=== PATIENT | female | born 1965 | race African-American/Black ===

== ENCOUNTER 2020-04-21 17:36 | Inpatient (IN) | payer MEDICARE, MEDICAID ==
[~2020-04-21] VITALS: Ht 172.7 cm; Wt 98.0 kg
[~2020-04-21 17:36] MED LIST: BENA40TA9 MT; FERR325T6 MT; GLYB5TAB7 MT; HALO5TAB PO; HYDR-4248 TP; INSU100I28 SQ
[2020-04-21] MEDS ORDERED: CEFTRIAXONE 1 G PREMIX 50 ML IV ONE (18:15)
[2020-04-21] MEDS ORDERED: SODIUM CHLORIDE 0.9% 1000ML BAG (SEPSIS BOLUS) IV ONE (18:15)
[2020-04-21 19:53] LABS: BASOPHILS % 0.2 % (0.0-2.0); EOSINOPHILS % 0.2 % (0.0-5.0); HEMATOCRIT. 32.7 % (36.0-48.0); HEMOGLOBIN. 10.4 g/dL (12.0-16.0); MEAN CORPUSCULAR HEMOGLOBIN 27.8 pg (28.0-32.0); MEAN CORPUSCULAR VOLUME 87.6 fL (81.0-99.0); MEAN PLATELET VOLUME 9.8 fl (7.4-10.4); MONOCYTES % 4.5 % (2.0-8.0); NEUTROPHILS % 79.1 % (40.0-76.0); PLATELET 156 x1000/uL (130-400); RED BLOOD CELL COUNT 3.73 mill/uL (4.2-5.4); RED CELL DISTRIBUTION WIDTH 22.2 % (11.6-14.6)
[2020-04-21 19:56] LABS: CHLORIDE 98 mEq/L (98-107)
[2020-04-21 19:58] LABS: INR 1.4; PROTHROMBIN TIME 14.3 sec (9.6-11.0)
[2020-04-21 20:31] LABS: PLATELET ESTIMATE NORMAL
[2020-04-22] VITALS (9 sets, daily range): BP systolic 91–173; BP diastolic 56–68
[2020-04-22] MEDS ORDERED: ONDANSETRON HCL 4MG/2ML INJ IV PRN (00:45)
[2020-04-22] MEDS ORDERED: DEXTROSE 50% WATER 50ML SYRINGE IV PRN (00:45)
[2020-04-22] MEDS ORDERED: ZOLPIDEM TARTRATE 5MG TABLET PO PRN (00:45)
[2020-04-22] MEDS ORDERED: ACETAMINOPHEN 325MG TABLET PO PRN (00:45)
[2020-04-22] MEDS ORDERED: MAGNESIUM/ALUMINUM HYDROXIDE/SIMETHICONE 30ML UDC PO PRN (00:45)
[2020-04-22] MEDS ORDERED: CLONIDINE 0.1MG TABLET PO PRN (00:45)
[2020-04-22] MEDS ORDERED: DIPHENHYDRAMINE 50MG/ML VIAL IV PRN (00:45)
[2020-04-22] MEDS: SODIUM CHLORIDE 0.9% 1,000 ML IV SCH ×3 (03:52→22:31)
[2020-04-22 06:31] LABS: HEMATOCRIT. 27.5 % (36.0-48.0); HEMOGLOBIN. 8.7 g/dL (12.0-16.0); MEAN CORPUSCULAR HEMOGLOBIN 27.4 pg (28.0-32.0); MEAN CORPUSCULAR VOLUME 86.1 fL (81.0-99.0); MEAN PLATELET VOLUME 9.9 fl (7.4-10.4); PLATELET 135 x1000/uL (130-400); RED CELL DISTRIBUTION WIDTH 21.1 % (11.6-14.6)
[2020-04-22 06:45] LABS: CHLORIDE 104 mEq/L (98-107)
[2020-04-22] MEDS: BLOOD SUGAR DIAGNOSTIC STRIP TEST SCH ×4 (07:30→21:00)
[2020-04-22] MEDS: INSULIN LISPRO 100 UNITS/ML SUBCUT SCH ×4 (08:00→21:00)
[2020-04-22] MEDS: FAMOTIDINE 20MG TABLET PO SCH ×2 (09:23→22:40)
[2020-04-22] MEDS: ACETAMINOPHEN 325MG TABLET PO PRN (16:14)
[2020-04-22] MEDS: CEFTRIAXONE 1,000 MG in DEXTROSE 5% WATER 50 ML IV SCH (22:40)
[2020-04-22 22:48] LABS: PLATELET ESTIMATE NORMAL
[2020-04-23] VITALS (12 sets, daily range): BP systolic 82–115; BP diastolic 45–67
[2020-04-23] MEDS: METRONIDAZOLE 500 MG PREMIX 100 ML IV SCH ×3 (02:40→17:17)
[2020-04-23 05:26] LABS: CHLORIDE 104 mEq/L (98-107)
[2020-04-23 05:31] LABS: BASOPHILS % 0.4 % (0.0-2.0); EOSINOPHILS % 0.4 % (0.0-5.0); HEMATOCRIT. 29.1 % (36.0-48.0); HEMOGLOBIN. 9.3 g/dL (12.0-16.0); LYMPHOCYTES % 14.5 % (20.0-50.0); MEAN CORPUSCULAR HEMOGLOBIN 27.3 pg (28.0-32.0); MEAN CORPUSCULAR VOLUME 85.1 fL (81.0-99.0); MEAN PLATELET VOLUME 10.1 fl (7.4-10.4); MONOCYTES % 6.2 % (2.0-8.0); NEUTROPHILS % 78.5 % (40.0-76.0); PLATELET 136 x1000/uL (130-400); RED BLOOD CELL COUNT 3.41 mill/uL (4.2-5.4); RED CELL DISTRIBUTION WIDTH 20.8 % (11.6-14.6)
[2020-04-23 05:33] LABS: PHOSPHORUS 4.3 mg/dL (2.5-4.9)
[2020-04-23] MEDS: BLOOD SUGAR DIAGNOSTIC STRIP TEST SCH ×4 (07:30→21:00)
[2020-04-23] MEDS: INSULIN LISPRO 100 UNITS/ML SUBCUT SCH ×4 (08:00→21:11)
[2020-04-23] MEDS: SODIUM CHLORIDE 0.9% 1,000 ML IV SCH ×2 (08:45→17:15)
[2020-04-23] MEDS: FAMOTIDINE 20MG TABLET PO SCH ×2 (08:48→20:59)
[2020-04-23] MEDS: MIDODRINE HCL 5MG TABLET PO SCH ×2 (11:42→16:36)
[2020-04-23 19:40] LABS: CREATINE KINASE 362 IU/L (26-192)
[2020-04-23] MEDS: CEFTRIAXONE 1,000 MG in DEXTROSE 5% WATER 50 ML IV SCH (20:59)
[2020-04-24] VITALS (12 sets, daily range): BP systolic 90–153; BP diastolic 43–88
[2020-04-24] MEDS: METRONIDAZOLE 500 MG PREMIX 100 ML IV SCH ×3 (03:03→17:04)
[2020-04-24] MEDS: SODIUM CHLORIDE 0.9% 1,000 ML IV SCH ×2 (03:54→13:03)
[2020-04-24] MEDS: BLOOD SUGAR DIAGNOSTIC STRIP TEST SCH ×4 (08:08→21:16)
[2020-04-24] MEDS: FAMOTIDINE 20MG TABLET PO SCH ×2 (08:24→21:16)
[2020-04-24] MEDS: MIDODRINE HCL 5MG TABLET PO SCH ×3 (08:25→16:56)
[2020-04-24] MEDS: INSULIN LISPRO 100 UNITS/ML SUBCUT SCH ×4 (08:36→21:00)
[2020-04-24] MEDS: ACETAMINOPHEN 325MG TABLET PO PRN (12:59)
[2020-04-24] MEDS: MEGESTROL ACETATE 400 MG/10 ML UDC PO SCH (16:55)
[2020-04-24] MEDS: ENOXAPARIN 40MG/0.4ML SYR SUBCUT SCH (16:55)
[2020-04-24] MEDS: CEFTRIAXONE 1,000 MG in DEXTROSE 5% WATER 50 ML IV SCH (21:16)
[2020-04-25] VITALS (12 sets, daily range): BP systolic 93–123; BP diastolic 38–68
[2020-04-25] MEDS: SODIUM CHLORIDE 0.9% 1,000 ML IV SCH ×2 (01:30→09:20)
[2020-04-25] MEDS: METRONIDAZOLE 500 MG PREMIX 100 ML IV SCH ×3 (01:30→19:09)
[2020-04-25] MEDS: BLOOD SUGAR DIAGNOSTIC STRIP TEST SCH ×4 (07:30→20:27)
[2020-04-25] MEDS: INSULIN LISPRO 100 UNITS/ML SUBCUT SCH ×4 (08:00→20:55)
[2020-04-25] MEDS: MEGESTROL ACETATE 400 MG/10 ML UDC PO SCH ×2 (09:10→19:10)
[2020-04-25] MEDS: FAMOTIDINE 20MG TABLET PO SCH ×2 (09:10→20:53)
[2020-04-25] MEDS: ACETAMINOPHEN 325MG TABLET PO PRN (09:11)
[2020-04-25] MEDS: MIDODRINE HCL 5MG TABLET PO SCH ×3 (09:11→19:11)
[2020-04-25] MEDS: ENOXAPARIN 40MG/0.4ML SYR SUBCUT SCH (16:27)
[2020-04-25] MEDS: CEFTRIAXONE 1,000 MG in DEXTROSE 5% WATER 50 ML IV SCH (20:53)
[2020-04-26] VITALS (22 sets, daily range): BP systolic 84–150; BP diastolic 42–76
[2020-04-26] MEDS: METRONIDAZOLE 500 MG PREMIX 100 ML IV SCH ×3 (02:00→17:24)
[2020-04-26] MEDS: SODIUM CHLORIDE 0.9% 1,000 ML IV SCH ×3 (03:27→13:56)
[2020-04-26] MEDS: BLOOD SUGAR DIAGNOSTIC STRIP TEST SCH ×4 (07:30→21:15)
[2020-04-26] MEDS: INSULIN LISPRO 100 UNITS/ML SUBCUT SCH ×4 (08:00→21:00)
[2020-04-26] MEDS: FAMOTIDINE 20MG TABLET PO SCH ×3 (08:12→21:14)
[2020-04-26] MEDS: MIDODRINE HCL 5MG TABLET PO SCH ×3 (08:12→17:23)
[2020-04-26] MEDS: MEGESTROL ACETATE 400 MG/10 ML UDC PO SCH ×2 (08:13→17:23)
[2020-04-26] MEDS: ENOXAPARIN 40MG/0.4ML SYR SUBCUT SCH (15:15)
[2020-04-26] MEDS: CEFTRIAXONE 1,000 MG in DEXTROSE 5% WATER 50 ML IV SCH (21:14)
[2020-04-27] VITALS (12 sets, daily range): BP systolic 97–113; BP diastolic 50–85
[2020-04-27] MEDS: SODIUM CHLORIDE 0.9% 1,000 ML IV SCH ×2 (01:45→16:22)
[2020-04-27] MEDS: BLOOD SUGAR DIAGNOSTIC STRIP TEST SCH ×4 (06:29→21:13)
[2020-04-27] MEDS: INSULIN LISPRO 100 UNITS/ML SUBCUT SCH ×4 (08:25→21:22)
[2020-04-27] MEDS: FAMOTIDINE 20MG TABLET PO SCH ×2 (08:42→21:21)
[2020-04-27] MEDS: MEGESTROL ACETATE 400 MG/10 ML UDC PO SCH ×2 (08:43→16:21)
[2020-04-27] MEDS: MIDODRINE HCL 5MG TABLET PO SCH ×3 (08:43→16:21)
[2020-04-27] MEDS: ENOXAPARIN 40MG/0.4ML SYR SUBCUT SCH (16:13)
[2020-04-28] VITALS (12 sets, daily range): BP systolic 99–135; BP diastolic 53–74
[2020-04-28] MEDS: SODIUM CHLORIDE 0.9% 1,000 ML IV SCH ×3 (03:04→17:29)
[2020-04-28] MEDS: INSULIN LISPRO 100 UNITS/ML SUBCUT SCH ×4 (08:00→21:00)
[2020-04-28] MEDS: BLOOD SUGAR DIAGNOSTIC STRIP TEST SCH ×4 (08:07→21:08)
[2020-04-28] MEDS: MIDODRINE HCL 5MG TABLET PO SCH ×3 (08:52→17:26)
[2020-04-28] MEDS: MEGESTROL ACETATE 400 MG/10 ML UDC PO SCH ×2 (08:52→17:26)
[2020-04-28] MEDS: FAMOTIDINE 20MG TABLET PO SCH ×2 (08:53→21:08)
[2020-04-28] MEDS: ENOXAPARIN 30MG/0.3ML SYR SUBCUT SCH (21:08)
[2020-04-28] MEDS: ACETAMINOPHEN 325MG TABLET PO PRN (22:00)
[2020-04-29] VITALS (12 sets, daily range): BP systolic 93–154; BP diastolic 48–80
[2020-04-29] MEDS: SODIUM CHLORIDE 0.9% 1,000 ML IV SCH ×2 (06:37→13:55)
[2020-04-29] MEDS: BLOOD SUGAR DIAGNOSTIC STRIP TEST SCH ×4 (07:30→20:34)
[2020-04-29] MEDS: MEGESTROL ACETATE 400 MG/10 ML UDC PO SCH ×2 (09:03→17:55)
[2020-04-29] MEDS: FAMOTIDINE 20MG TABLET PO SCH ×2 (09:03→20:34)
[2020-04-29] MEDS: ENOXAPARIN 30MG/0.3ML SYR SUBCUT SCH ×2 (09:04→20:34)
[2020-04-29] MEDS: INSULIN LISPRO 100 UNITS/ML SUBCUT SCH ×4 (09:05→20:34)
[2020-04-29] MEDS: MIDODRINE HCL 5MG TABLET PO SCH ×3 (09:06→17:57)
[2020-04-30] VITALS (12 sets, daily range): BP systolic 105–138; BP diastolic 23–91
[2020-04-30] MEDS: SODIUM CHLORIDE 0.9% 1,000 ML IV SCH ×3 (01:27→20:28)
[2020-04-30] MEDS: INSULIN LISPRO 100 UNITS/ML SUBCUT SCH ×4 (07:51→20:47)
[2020-04-30] MEDS: BLOOD SUGAR DIAGNOSTIC STRIP TEST SCH ×4 (07:51→20:28)
[2020-04-30] MEDS: ENOXAPARIN 30MG/0.3ML SYR SUBCUT SCH ×2 (09:03→20:47)
[2020-04-30] MEDS: FAMOTIDINE 20MG TABLET PO SCH ×2 (09:04→20:28)
[2020-04-30] MEDS: MEGESTROL ACETATE 400 MG/10 ML UDC PO SCH ×2 (09:05→18:17)
[2020-04-30] MEDS: MIDODRINE HCL 5MG TABLET PO SCH ×3 (09:08→18:17)
[2020-04-30 11:33] LABS: BASOPHILS % 0.3 % (0.0-2.0); EOSINOPHILS % 0.2 % (0.0-5.0); HEMATOCRIT. 33.4 % (36.0-48.0); HEMOGLOBIN. 10.1 g/dL (12.0-16.0); LYMPHOCYTES % 9.5 % (20.0-50.0); MEAN CORPUSCULAR HEMOGLOBIN 27.6 pg (28.0-32.0); MEAN CORPUSCULAR VOLUME 90.8 fL (81.0-99.0); MEAN PLATELET VOLUME 10.2 fl (7.4-10.4); MONOCYTES % 4.8 % (2.0-8.0); NEUTROPHILS % 85.2 % (40.0-76.0); PLATELET 175 x1000/uL (130-400); RED BLOOD CELL COUNT 3.68 mill/uL (4.2-5.4); RED CELL DISTRIBUTION WIDTH 21.5 % (11.6-14.6)
[2020-04-30 11:38] LABS: CHLORIDE 111 mEq/L (98-107)
[2020-04-30 11:44] LABS: PHOSPHORUS 3.2 mg/dL (2.5-4.9)
[2020-05-01] VITALS (11 sets, daily range): BP systolic 114–135; BP diastolic 76–97
[2020-05-01] MEDS: SODIUM CHLORIDE 0.9% 1,000 ML IV SCH (05:11)
[2020-05-01] MEDS: BLOOD SUGAR DIAGNOSTIC STRIP TEST SCH ×3 (07:30→18:26)
[2020-05-01] MEDS: INSULIN LISPRO 100 UNITS/ML SUBCUT SCH ×3 (08:00→18:00)
[2020-05-01] MEDS: MIDODRINE HCL 5MG TABLET PO SCH ×3 (09:00→17:13)
[2020-05-01] MEDS: ENOXAPARIN 30MG/0.3ML SYR SUBCUT SCH (09:00)
[2020-05-01] MEDS: MEGESTROL ACETATE 400 MG/10 ML UDC PO SCH ×2 (09:00→17:13)
[2020-05-01] MEDS: FAMOTIDINE 20MG TABLET PO SCH (09:00)
== END 2020-05-01 18:22 | disposition hospice, inpatient (51) | DRG 435 ==
LOC: ER 17:36 → MICUSO 21:28 → EDBEDREQ 21:34 → EDBEDREQTM 21:34 → ENRESERV 23:15 → 5EST 23:52
PROVIDERS: ADMIT Internal Medicine; ATTEND Internal Medicine
DX: C25.9 Malignant neoplasm of pancreas, unspecified (principal); E43 Unspecified severe protein-calorie malnutrition; C56.9 Malignant neoplasm of unspecified ovary; C78.00 Secondary malignant neoplasm of unspecified lung; C78.7 Secondary malignant neoplasm of liver and intrahepatic bile duct; E87.2 Acidosis; N39.0 Urinary tract infection, site not specified; R65.10 Systemic inflammatory response syndrome (SIRS) of non-infectious origin without acute organ dysfunction; D64.9 Anemia, unspecified; E66.9 Obesity, unspecified; F17.210 Nicotine dependence, cigarettes, uncomplicated; I10 Essential (primary) hypertension; I25.10 Atherosclerotic heart disease of native coronary artery without angina pectoris; J44.9 Chronic obstructive pulmonary disease, unspecified; E11.65 Type 2 diabetes mellitus with hyperglycemia; Z20.828 Contact with and (suspected) exposure to other viral communicable diseases; Z51.5 Encounter for palliative care; Z74.01 Bed confinement status; Z85.07 Personal history of malignant neoplasm of pancreas; Z85.05 Personal history of malignant neoplasm of liver; Z85.43 Personal history of malignant neoplasm of ovary; Z79.4 Long term (current) use of insulin; Z79.899 Other long term (current) drug therapy; Z68.32 Body mass index [BMI] 32.0-32.9, adult
CPT/HCPCS: 36415; 71045; 80048; 80053; 82040; 82550; 82962; 83036; 83605; 83735; 84100; 84134; 84145; 84484; 85025; 86304; 87635; 93005; 97162; 97530; 99291; A6261; J0696; J1650; J1815; J3490; J7030; J7060